=== PATIENT | female | born 1995 | race Caucasian/White ===

== ENCOUNTER 2017-03-16 20:48 | Emergency (ER) | payer OTHER ==
[2017-03-16 21:39] LABS: Urine Bilirubin Negative (Negative); Urine Glucose Negative (Negative); Urine Nitrite Negative (Negative)
[2017-03-16] MEDS ORDERED: NS 0.9% 1000 ML* 1,000 ML IV ONE (21:39)
[2017-03-16 21:57] LABS: Benzodiazepine Urine Screen None Detected (None Detect)
[2017-03-16 22:23] LABS: Hematocrit 41 % (35-47); Hemoglobin 13.7 g/dl (12.0-16.0); Mean Corpuscular HGB Conc 34 g/dl (31-36); Mean Corpuscular Hemoglobin 31 pg (27-31); Mean Corpuscular Volume 92 fL (80-97); Mean Platelet Volume 9 um3 (7.4-10.4); Red Blood Count 4.43 10^6/ul (4.0-5.4); Red Cell Distribution Width 13 % (10.5-15); White Blood Count 7.1 10^3/ul (3.5-10.8)
[2017-03-16 22:41] LABS: ALT 10 U/L (7-52); AST 13 U/L (13-39); Albumin 4.3 g/dL (3.2-5.2); Alkaline Phosphatase 49 U/L (34-104); Anion Gap 7 mmol/L (2-11); BUN/Creatinine Ratio 11.6 (8-20); Blood Urea Nitrogen 11 mg/dL (6-24); CO2 Carbon Dioxide 25 mmol/L (22-32); Calcium 9.4 mg/dL (8.6-10.3); Chloride 104 mmol/L (101-111); EGFR African American 96.5 (>60); Globulin 2.9 g/dL (2-4); Glucose 97 mg/dL (70-100); Potassium 3.2 mmol/L (3.5-5.0); Sodium 136 mmol/L (133-145); Total Protein 7.2 g/dL (6.4-8.9)
[2017-03-16 22:51] LABS: Acetaminophen < 15 mcg/mL; Alcohol < 10 mg/dL (<10); Salicylate < 2.50 mg/dL (<30)
[2017-03-16 22:59] LABS: TSH (Thyroid Stimulating Horm) 1.03 mcIU/mL (0.34-5.60)
[2017-03-17 00:33] LABS: Urine Bilirubin Negative (Negative); Urine Glucose Negative (Negative); Urine Nitrite Negative (Negative)
[2017-03-17 03:36] VITALS: BP 123/76
[2017-03-17 03:36] LABS: Benzodiazepine Urine Screen None Detected (None Detect)
--- NOTE | 2017-03-17 04:56 | ED ---
Kendra Wyatt Alok, scribed for Paul Aceves MD on 03/16/17 at 2153 . Psychiatric Complaint - HPI Summary HPI Summary: 21F presents to the ED after reportedly injecting five 20 mg Prozac tablets. Pt states that these tablets were prescribed to her for anxiety. Pt notes CP currently. Pt states she hasn't been sleeping well. Pt denies SOB or abd pain. Pt denies change in appetite. Pt denies any self-inflicted cuts or wounds. PMHx includes anxiety. Pt denies tobacco or ETOH. - History Of Current Complaint Chief Complaint: EDMentalHealth Time Seen by Provider: 03/16/17 21:37 Hx Obtained From: Patient Onset/Duration: Still Present Timing: Constant Severity Initially: Moderate Severity Currently: Moderate Character: Depressed, Anxious Aggravating Factor(s): Nothing Alleviating Factor(s): Nothing Associated Signs And Symptoms: Positive: Sleep Disturbance. Negative: Appetite Change Ingestion History: Type/Name Of Drug - Prozac, Amount Ingested - 5-6 20 mg tablets, Approximate Time Of Ingestion - Allergies/Home Medications Allergies/Adverse Reactions: Allergies Allergy/AdvReac Type Severity Reaction Status Date / Time Amoxicillin Allergy Intermediate Hives Verified 02/06/16 19:17 PMH/Surg Hx/FS Hx/Imm Hx Psychiatric History: Reports: Hx Anxiety - Immunization History Date of Tetanus Vaccine: Up to date Date of Influenza Vaccine: None Infectious Disease History: No Infectious Disease History: Denies: Traveled Outside the US in Last 30 Days - Family History Known Family History: Positive: Other - mother with MS - Social History Occupation: Student Lives: With Family Alcohol Use: None Substance Use Type: Reports: None Smoking Status (MU): Never Smoked Tobacco Review of Systems Positive: Chest Pain Negative: Shortness Of Breath Negative: Abdominal Pain All Other Systems Reviewed And Are Negative: Yes Physical Exam - Summary Physical Exam Summary: The patient is well-nourished in no acute distress and in no acute pain. The skin is warm and dry and skin color reflects adequate perfusion. No arm lacerations. HEENT: The head is normocephalic and atraumatic. The pupils are equal and reactive. The conjunctivae are clear and without drainage. Nares are patent and without drainage. Mouth reveals moist mucous membranes and the throat is without erythema and exudate. Neck is supple with full range of motion and non-tender. There are no carotid bruits. There is no neck vein distension. Respiratory: Chest is non-tender. Lungs are clear to auscultation and breath sounds are symmetrical and equal. Cardiovascular: Heart is regular rate and rhythm. There is no murmur or rub auscultated. There is no peripheral edema and pulses are symmetrical and equal. Abdomen: The abdomen is soft and non-tender. There are normal bowel sounds heard in all four quadrants and there is no organomegaly palpated. Musculoskeletal: There is no back pain noted. Extremities are non-tender with full range of motion. There is good capillary refill. There is no peripheral edema or calf tenderness elicited. Neurological: Patient is alert and oriented to person, place and time. The patient has symmetrical motor strength in all four extremities. Cranial nerves are grossly intact. Deep tendon reflexes are symmetrical and equal in all four extremities. Psychiatric: The patient is flat/affect and appears depressed. Triage Information Reviewed: Yes Vital Signs On Initial Exam: Initial Vitals Temp Pulse Resp BP Pulse Ox 99.9 F 84 18 140/95 100 03/16/17 21:02 03/16/17 21:02 03/16/17 21:02 03/16/17 21:02 03/16/17 21:02 Vital Signs Reviewed: Yes Diagnostics - Vital Signs Vital Signs Temp Pulse Resp BP Pulse Ox 03/16/17 21:16 99.9 F 84 18 140/95 100 03/16/17 21:02 99.9 F 84 18 140/95 100 - Laboratory Lab Results: Lab Results 03/16/17 03/16/17 03/16/17 Range/Units 21:27 21:27 22:09 WBC 7.1 (3.5-10.8) 10^3/ul RBC 4.43 (4.0-5.4) 10^6/ul Hgb 13.7 (12.0-16.0) g/dl Hct 41 (35-47) % MCV 92 (80-97) fL MCH 31 (27-31) pg MCHC 34 (31-36) g/dl RDW 13 (10.5-15) % Plt Count 206 (150-450) 10^3/ul MPV 9 (7.4-10.4) um3 Neut % (Auto) 47.7 (38-83) % Lymph % (Auto) 43.6 (25-47) % [place] % (Auto) 7.3 (1-9) % Eos % (Auto) 0.7 (0-6) % Baso % (Auto) 0.7 (0-2) % Absolute Neuts (auto) 3.4 (1.5-7.7) 10^3/ul Absolute Lymphs (auto) 3.1 (1.0-4.8) 10^3/ul Absolute Monos (auto) 0.5 (0-0.8) 10^3/ul Absolute Eos (auto) 0.1 (0-0.6) 10^3/ul Absolute Basos (auto) 0 (0-0.2) 10^3/ul Absolute Nucleated RBC 0.01 10^3/ul Nucleated RBC % 0.1 Sodium (133-145) mmol/L Potassium (3.5-5.0) mmol/L Chloride (101-111) mmol/L Carbon Dioxide (22-32) mmol/L Anion Gap (2-11) mmol/L BUN (6-24) mg/dL Creatinine (0.51-0.95) mg/dL Est GFR ( Amer) (>60) Est GFR (Non-Af Amer) (>60) BUN/Creatinine Ratio (8-20) Glucose (70-100) mg/dL Calcium (8.6-10.3) mg/dL Total Bilirubin (0.2-1.0) mg/dL AST (13-39) U/L ALT (7-52) U/L Alkaline Phosphatase (34-104) U/L Total Protein (6.4-8.9) g/dL Albumin (3.2-5.2) g/dL Globulin (2-4) g/dL Albumin/Globulin Ratio (1-3) TSH (0.34-5.60) mcIU/mL Beta HCG, Quant mIU/mL Urine Color Colorless Urine Appearance Clear Urine pH 6.0 (5-9) Ur Specific [place] 1.002 L (1.010-1.030) Urine Protein Negative (Negative) Urine Ketones Negative (Negative) Urine Blood Negative (Negative) Urine Nitrate Negative (Negative) Urine Bilirubin Negative (Negative) Urine Urobilinogen Negative (Negative) Ur Leukocyte Esterase Negative (Negative) Urine Glucose Negative (Negative) Salicylates (<30) mg/dL Urine Opiates Screen None detected (None Detect) Acetaminophen mcg/mL Ur Barbiturates Screen None detected (None Detect) Ur Phencyclidine Scrn None detected (None Detect) Ur Amphetamines Screen None detected (None Detect) U Benzodiazepines Scrn None detected (None Detect) Urine Cocaine Screen None detected (None Detect) U Cannabinoids Screen None detected (None Detect) Serum Alcohol (<10) mg/dL 03/16/17 03/17/17 03/17/17 Range/Units 22:09 00:12 00:14 WBC (3.5-10.8) 10^3/ul RBC (4.0-5.4) 10^6/ul Hgb (12.0-16.0) g/dl Hct (35-47) % MCV (80-97) fL MCH (27-31) pg MCHC (31-36) g/dl RDW (10.5-15) % Plt Count (150-450) 10^3/ul MPV (7.4-10.4) um3 Neut % (Auto) (38-83) % Lymph % (Auto) (25-47) % Cannon % (Auto) (1-9) % Eos % (Auto) (0-6) % Baso % (Auto) (0-2) % Absolute Neuts (auto) (1.5-7.7) 10^3/ul Absolute Lymphs (auto) (1.0-4.8) 10^3/ul Absolute Monos (auto) (0-0.8) 10^3/ul Absolute Eos (auto) (0-0.6) 10^3/ul Absolute Basos (auto) (0-0.2) 10^3/ul Absolute Nucleated RBC 10^3/ul Nucleated RBC % Sodium 136 (133-145) mmol/L Potassium 3.2 L (3.5-5.0) mmol/L Chloride 104 (101-111) mmol/L Carbon Dioxide 25 (22-32) mmol/L Anion Gap 7 (2-11) mmol/L BUN 11 (6-24) mg/dL Creatinine 0.95 (0.51-0.95) mg/dL Est GFR ( Amer) 96.5 (>60) Est GFR (Non-Af Amer) 75.0 (>60) BUN/Creatinine Ratio 11.6 (8-20) Glucose 97 (70-100) mg/dL Calcium 9.4 (8.6-10.3) mg/dL Total Bilirubin 0.30 (0.2-1.0) mg/dL AST 13 (13-39) U/L ALT 10 (7-52) U/L Alkaline Phosphatase 49 (34-104) U/L Total Protein 7.2 (6.4-8.9) g/dL Albumin 4.3 (3.2-5.2) g/dL Globulin 2.9 (2-4) g/dL Albumin/Globulin Ratio 1.5 (1-3) TSH 1.03 (0.34-5.60) mcIU/mL Beta HCG, Quant < 0.60 mIU/mL Urine Color Straw Urine Appearance Clear Urine pH 7.0 (5-9) Ur Specific [place] 1.005 L (1.010-1.030) Urine Protein Negative (Negative) Urine Ketones Negative (Negative) Urine Blood Negative (Negative) Urine Nitrate Negative (Negative) Urine Bilirubin Negative (Negative) Urine Urobilinogen Negative (Negative) Ur Leukocyte Esterase Negative (Negative) Urine Glucose Negative (Negative) Salicylates < 2.50 (<30) mg/dL Urine Opiates Screen None detected (None Detect) Acetaminophen < 15 mcg/mL Ur Barbiturates Screen None detected (None Detect) Ur Phencyclidine Scrn None detected (None Detect) Ur Amphetamines Screen None detected (None Detect) U Benzodiazepines Scrn None detected (None Detect) Urine Cocaine Screen None detected (None Detect) U Cannabinoids Screen None detected (None Detect) Serum Alcohol < 10 (<10) mg/dL Result Diagrams: 03/16/17 22:09 03/16/17 22:09 Lab Statement: Any lab studies that have been ordered have been reviewed, and results considered in the medical decision making process. - EKG 215 Cardiac Rate: NL - 73 bpm EKG Rhythm: Sinus Rhythm Ectopy: PVCs EKG Interpretation: Normal [place]. No prolonged QT. Course/Dx - Course Course Of Treatment: 21 y/o female ingested 5-6 20 mg tablets of Prozac. Poison control contacted; recommending 6 hour monitoring. Patient medically clear for U evaluation @ 0250 - Differential Dx/Clinical Impression Differential Diagnosis/HQI/PQRI: Positive: Drug Overdose/Intentional Provider Diagnosis: Depression, non-toxic prozac ingestion Discharge - Discharge Plan Condition: Stable Disposition: HOME Referrals: Marnie Godinez MD [Primary Care Provider] - The documentation as recorded by the Kendra ureña Alok accurately reflects the service I personally performed and the decisions made by me, Paul Aceves MD.
== END 2017-03-17 03:37 | disposition home or self-care (01) ==
LOC: ED 20:48
DX: T43.221A Poisoning by selective serotonin reuptake inhibitors, accidental (unintentional), initial encounter (principal); F32.9 Major depressive disorder, single episode, unspecified; F41.9 Anxiety disorder, unspecified; Y92.9 Unspecified place or not applicable; Z88.0 Allergy status to penicillin
CPT/HCPCS: 36415; 80053; 80307; 80320; 80329; 81003; 84443; 84702; 85025; 86703; 93005; 96360; 99285; G0480

== ENCOUNTER 2017-03-27 19:57 | Inpatient (IN) | payer OTHER ==
[2017-03-27 21:03] LABS: Hematocrit 42 % (35-47); Hemoglobin 13.6 g/dl (12.0-16.0); Mean Corpuscular HGB Conc 33 g/dl (31-36); Mean Corpuscular Hemoglobin 30 pg (27-31); Mean Corpuscular Volume 92 fL (80-97); Mean Platelet Volume 9 um3 (7.4-10.4); Red Blood Count 4.58 10^6/ul (4.0-5.4); Red Cell Distribution Width 13 % (10.5-15)
[2017-03-27 21:15] LABS: ALT 11 U/L (7-52); AST 13 U/L (13-39); Albumin 4.5 g/dL (3.2-5.2); Alkaline Phosphatase 54 U/L (34-104); Anion Gap 5 mmol/L (2-11); Blood Urea Nitrogen 15 mg/dL (6-24); CO2 Carbon Dioxide 27 mmol/L (22-32); Calcium 9.3 mg/dL (8.6-10.3); Chloride 105 mmol/L (101-111); EGFR African American 105.4 (>60); EGFR Non-African American 81.9 (>60); Globulin 2.9 g/dL (2-4); Glucose 97 mg/dL (70-100); Potassium 3.6 mmol/L (3.5-5.0); Sodium 137 mmol/L (133-145); Total Protein 7.4 g/dL (6.4-8.9)
[2017-03-27 21:18] LABS: Urine Bilirubin Negative (Negative); Urine Glucose Negative (Negative); Urine Nitrite Negative (Negative)
[2017-03-27 21:32] LABS: Benzodiazepine Urine Screen None Detected (None Detect)
[2017-03-27 21:51] LABS: Acetaminophen < 15 mcg/mL; Alcohol < 10 mg/dL (<10); Salicylate < 2.50 mg/dL (<30)
[2017-03-27 22:01] LABS: TSH (Thyroid Stimulating Horm) 0.43 mcIU/mL (0.34-5.60)
--- NOTE | 2017-03-28 00:03 | ED ---
I, Oh,Rakesh, scribed for Elma Sutherland MD on 03/27/17 at 2055 . Psychiatric Complaint - HPI Summary HPI Summary: Poor eye contact and guarded during the initial evaluation. Most HPI is obtained from bestfriend's mother who is present at bedside. This 21 y/o female presents to ED alongside best friend's mother for SI since today. "I can't handle myself". Positive plan, but pt does not specify the details. Pt is brought in by concerned bestfriend's mother after pt sent a suicide note via text to his boyfriend, which contains phrases such as "Goodbye for ever", "I am going to go away forever", "I am okay with dying right now", and "The future that I was looking forward to won't be happening". Friend's mother did not feel safe leaving pt alone, called suicide crisis line, and decided to bring patient in. Pt does confirm the suicide note at time of initial evaluation. And like it or not I need you in my life". Positive recent stressor due to family conflict with her mother and potential breakup with his boyfriend. Negative drug or EtOH. Pt is a student at school in [place] but is currently on leave while working in a [employer]. Pt was previously evaluated 10 days ago after taking pills and was discharged home after clearance. LMP was 2 weeks ago, but pt is currently on Nexplanon and has irregular vaginal bleeding until yesterday. No prior . PMHx includes anxiety and asthma. Pt reports possible sick contact from her friend. - History Of Current Complaint Chief Complaint: EDMentalHealth Time Seen by Provider: 03/27/17 20:23 Hx Obtained From: Patient, Family/Real Estate Legal Secretary - Jennifer, pt's best friend's mother Hx Last Menstrual Period: "just finishing", irregular, on Nexplanon ?: No Onset/Duration: Gradual Onset, Lasting Hours, Still Present Timing: Constant Severity Initially: Severe Severity Currently: Severe Character: Depressed Aggravating Factor(s): Recent Stress, Other - break up with boyfriend Alleviating Factor(s): Nothing Related History: Positive For: Prior Psychiatric Issues - recent overdose with pills Has Suicidal: Reports: Thoughts, With A Plan - Risk Factor(s) Completed Suicide Risk Factors: Past Suicide Attempt - Allergies/Home Medications Allergies/Adverse Reactions: Allergies Allergy/AdvReac Type Severity Reaction Status Date / Time Amoxicillin Allergy Intermediate Hives Verified 02/06/16 19:17 PMH/Surg Hx/FS Hx/Imm Hx Previously Healthy: No Respiratory History: Reports: Hx Asthma Psychiatric History: Reports: Hx Anxiety, Hx Depression Denies: Hx Eating Disorder - Surgical History Surgery Procedure, Year, and Place: no surg hx - Immunization History Date of Tetanus Vaccine: Up to date Date of Influenza Vaccine: None Infectious Disease History: No Infectious Disease History: Denies: Traveled Outside the US in Last 30 Days - Family History Known Family History: Positive: Other - mother with MS. Positive bipolar and alcoholism per pt - Social History Occupation: Employed Full-time Lives: With Family Alcohol Use: None Hx Substance Use: No Substance Use Type: Reports: None Hx Tobacco Use: No Smoking Status (MU): Never Smoked Tobacco Review of Systems Negative: Fever Cardiovascular: Negative Respiratory: Negative Gastrointestinal: Negative Neurological: Negative Positive: Depressed All Other Systems Reviewed And Are Negative: Yes Physical Exam Triage Information Reviewed: Yes Vital Signs On Initial Exam: Initial Vitals Temp Pulse Resp BP Pulse Ox 100.0 F 88 16 134/88 98 03/27/17 20:01 03/27/17 20:01 03/27/17 20:01 03/27/17 20:01 03/27/17 20:01 Vital Signs Reviewed: Yes Appearance: Positive: Well-Appearing, No Pain Distress, Well-Nourished. Negative: Signs of Trauma Skin: Positive: Warm, Skin Color Reflects Adequate Perfusion, Dry Head/Face: Positive: Normal Head/Face Inspection Eyes: Positive: EOMI, LUIS, Conjunctiva Clear ENT: Positive: Normal ENT inspection Neck: Positive: Supple, Nontender Respiratory/Lung Sounds: Positive: Clear to Auscultation, Breath Sounds Present Cardiovascular: Positive: RRR, Pulses are Symmetrical in both Upper and Lower Extremities. Negative: Leg Edema Left, Leg Edema Right Abdomen Description: Positive: Nontender, Soft. Negative: Distended, Guarding, Peritoneal Signs Musculoskeletal: Positive: Strength/ROM Intact. Negative: Blayne Sign Left, Blayne Sign Right, Edema Left, Edema Right Neurological: Positive: Sensory/Motor Intact, Alert, Oriented to Person Place, Time, Facial Symmetry, Speech Normal Psychiatric: Positive: Depressed - Guarded. Poor eye contact AVPU Assessment: Alert - [place] Coma Scale Coma Scale Total: 15 Diagnostics - Vital Signs Vital Signs Temp Pulse Resp BP Pulse Ox 03/27/17 20:01 100.0 F 88 16 134/88 98 - Laboratory Lab Results: Lab Results 03/27/17 03/27/17 03/27/17 Range/Units 21:09 21:09 21:54 WBC 8.0 (3.5-10.8) 10^3/ul RBC 4.58 (4.0-5.4) 10^6/ul Hgb 13.6 (12.0-16.0) g/dl Hct 42 (35-47) % MCV 92 (80-97) fL MCH 30 (27-31) pg MCHC 33 (31-36) g/dl RDW 13 (10.5-15) % Plt Count 200 (150-450) 10^3/ul MPV 9 (7.4-10.4) um3 Neut % (Auto) 64.9 (38-83) % Lymph % (Auto) 27.0 (25-47) % [place] % (Auto) 6.8 (1-9) % Eos % (Auto) 0.5 (0-6) % Baso % (Auto) 0.8 (0-2) % Absolute Neuts (auto) 5.2 (1.5-7.7) 10^3/ul Absolute Lymphs (auto) 2.2 (1.0-4.8) 10^3/ul Absolute Monos (auto) 0.5 (0-0.8) 10^3/ul Absolute Eos (auto) 0 (0-0.6) 10^3/ul Absolute Basos (auto) 0.1 (0-0.2) 10^3/ul Absolute Nucleated RBC 0 10^3/ul Nucleated RBC % 0.1 Sodium (133-145) mmol/L Potassium (3.5-5.0) mmol/L Chloride (101-111) mmol/L Carbon Dioxide (22-32) mmol/L Anion Gap (2-11) mmol/L BUN (6-24) mg/dL Creatinine (0.51-0.95) mg/dL Est GFR ( Amer) (>60) Est GFR (Non-Af Amer) (>60) BUN/Creatinine Ratio (8-20) Glucose (70-100) mg/dL Lactic Acid (0.5-2.0) mmol/L Calcium (8.6-10.3) mg/dL Total Bilirubin (0.2-1.0) mg/dL AST (13-39) U/L ALT (7-52) U/L Alkaline Phosphatase (34-104) U/L Total Protein (6.4-8.9) g/dL Albumin (3.2-5.2) g/dL Globulin (2-4) g/dL Albumin/Globulin Ratio (1-3) TSH Beta HCG, Quant mIU/mL Urine Color Yellow Urine Appearance Clear Urine pH 6.0 (5-9) Ur Specific [place] 1.015 (1.010-1.030) Urine Protein Negative (Negative) Urine Ketones Negative (Negative) Urine Blood Negative (Negative) Urine Nitrate Negative (Negative) Urine Bilirubin Negative (Negative) Urine Urobilinogen Negative (Negative) Ur Leukocyte Esterase Negative (Negative) Urine Glucose Negative (Negative) Salicylates (<30) mg/dL Urine Opiates Screen None detected (None Detect) Acetaminophen mcg/mL Ur Barbiturates Screen None detected (None Detect) Ur Phencyclidine Scrn None detected (None Detect) Ur Amphetamines Screen None detected (None Detect) U Benzodiazepines Scrn None detected (None Detect) Urine Cocaine Screen None detected (None Detect) U Cannabinoids Screen None detected (None Detect) Serum Alcohol (<10) mg/dL 03/27/17 03/27/17 Range/Units 21:54 21:54 WBC (3.5-10.8) 10^3/ul RBC (4.0-5.4) 10^6/ul Hgb (12.0-16.0) g/dl Hct (35-47) % MCV (80-97) fL MCH (27-31) pg MCHC (31-36) g/dl RDW (10.5-15) % Plt Count (150-450) 10^3/ul MPV (7.4-10.4) um3 Neut % (Auto) (38-83) % Lymph % (Auto) (25-47) % [place] % (Auto) (1-9) % Eos % (Auto) (0-6) % Baso % (Auto) (0-2) % Absolute Neuts (auto) (1.5-7.7) 10^3/ul Absolute Lymphs (auto) (1.0-4.8) 10^3/ul Absolute Monos (auto) (0-0.8) 10^3/ul Absolute Eos (auto) (0-0.6) 10^3/ul Absolute Basos (auto) (0-0.2) 10^3/ul Absolute Nucleated RBC 10^3/ul Nucleated RBC % Sodium 137 (133-145) mmol/L Potassium 3.6 (3.5-5.0) mmol/L Chloride 105 (101-111) mmol/L Carbon Dioxide 27 (22-32) mmol/L Anion Gap 5 (2-11) mmol/L BUN 15 (6-24) mg/dL Creatinine 0.88 (0.51-0.95) mg/dL Est GFR ( Amer) 105.4 (>60) Est GFR (Non-Af Amer) 81.9 (>60) BUN/Creatinine Ratio 17.0 (8-20) Glucose 97 (70-100) mg/dL Lactic Acid 0.9 (0.5-2.0) mmol/L Calcium 9.3 (8.6-10.3) mg/dL Total Bilirubin 0.30 (0.2-1.0) mg/dL AST 13 (13-39) U/L ALT 11 (7-52) U/L Alkaline Phosphatase 54 (34-104) U/L Total Protein 7.4 (6.4-8.9) g/dL Albumin 4.5 (3.2-5.2) g/dL Globulin 2.9 (2-4) g/dL Albumin/Globulin Ratio 1.6 (1-3) TSH Pending Beta HCG, Quant < 0.60 mIU/mL Urine Color Urine Appearance Urine pH (5-9) Ur Specific [place] (1.010-1.030) Urine Protein (Negative) Urine Ketones (Negative) Urine Blood (Negative) Urine Nitrate (Negative) Urine Bilirubin (Negative) Urine Urobilinogen (Negative) Ur Leukocyte Esterase (Negative) Urine Glucose (Negative) Salicylates < 2.50 (<30) mg/dL Urine Opiates Screen (None Detect) Acetaminophen < 15 mcg/mL Ur Barbiturates Screen (None Detect) Ur Phencyclidine Scrn (None Detect) Ur Amphetamines Screen (None Detect) U Benzodiazepines Scrn (None Detect) Urine Cocaine Screen (None Detect) U Cannabinoids Screen (None Detect) Serum Alcohol < 10 (<10) mg/dL Result Diagrams: 03/27/17 21:54 03/27/17 21:54 Lab Statement: Any lab studies that have been ordered have been reviewed, and results considered in the medical decision making process. Re-Evaluation - Re-Evaluation First Eval Re-Evaluation Time: 21:03 Comment: Pt requests to go to bathroom. Second Eval Re-Evaluation Time: 21:40 Comment: Best friend present at bedside. Course/Dx - Course Assessment/Plan: This 21 y/o female presents to ED after texting suicide note via text message to her boyfriend. Concerned friend's mother decided to bring pt in to ED when text was forwarded in her way. Positive SI with unspecified plan. Pt makes poor eye contact and appears guarded at time of initial evaluation. Negative EtOH or substance abuse today. Pt is medically cleared as of 2146 PM and is pending MHE. 2356: Psychiatrist states admit. Pt will need BP recheck within one month. - Differential Dx/Clinical Impression Differential Diagnosis/HQI/PQRI: Positive: Bipolar Disorder, Depression, Suicidal Ideation Provider Diagnosis: Suicidal ideation, Prehypertension - Physician Notifications Instructed by Provider To: Admit As Inpatient Patient Is Medically Stable For: Psych Evaluation - cleared as of 2147 PM Discharge - Discharge Plan Condition: Stable Disposition: [facility]IATRIC FACILITY-[facility] [place] The documentation as recorded by the Sarabjit ureña Soohyun accurately reflects the service I personally performed and the decisions made by , Elma Sutherland MD.
[2017-03-28] MEDS ORDERED: Acetaminophen TAB* 325 MG PO PRN (01:58)
[2017-03-28] MEDS ORDERED: Al Hydrox/Mg Hydrox/Simet LIQ* 30 ML UDC PO PRN (01:58)
[2017-03-28] MEDS ORDERED: predniSONE TAB* 20 MG PO PRN (01:59)
[2017-03-28] MEDS ORDERED: Famotidine TAB* 20 MG PO PRN (02:00)
[2017-03-28] MEDS: Vitamin THERAPEUTIC TAB PO SCH (09:19)
[2017-03-28] MEDS ORDERED: hydrOXYzine HCL TAB* 25 MG PO PRN (13:31)
[2017-03-28] MEDS: Venlafaxine EXT RELEASE CAP* 75 MG PO SCH (15:20)
--- NOTE | 2017-03-28 22:58 | HP ---
HISTORY AND PHYSICAL: DATE OF ADMISSION: 03/28/17 ATTENDING PSYCHIATRIST: Vishnu Naqvi MD. * (DICTATED BY GLADYS IVERSON NP) JUSTIFICATION FOR ADMISSION: The patient was admitted after being brought by her friend's mother, Jennifer, to the emergency room. She had made a suicidal note via text to her ex-boyfriend and he shared this with Jennifer. CHIEF COMPLAINT TODAY: "I am surviving." HISTORY OF PRESENT ILLNESS: Joyce is a 21-year-old female, single, employed, currently on medical leave from college and lives with her mother, Trini. Joyce took the springester off from [facility] in [place] due to increased depression. She has been planning on reentering school this fall, which would be approximately 2 weeks from now. However, her boyfriend of 2 years broke up with her recently and she texted him a message that said "say good bye to your family and I am telling Jessica to say good bye to mine. I have caused too much pain. I am okay with dying right now." Joyce endorses increased depressed mood and depressive symptoms for approximately 1 year. She endorses anhedonia, low energy, thoughts of suicide. She states that her sleep is more interrupted and her appetite has lessened. She endorses generalized anxiety is more significant. She states that while in school she had panic attacks once or twice weekly. She states her last panic attack was yesterday after breakup with her boyfriend. She is vague with other symptoms. She reports that she wants to sort things through in her head. She declines to elaborate further on this. She has a new patient appointment with therapist, Marge Hernández this week. Joyce states that she would prefer to go into detail with a therapist with whom she is going to have a longer time relationship. Joyce was also seen in the emergency room on 03/16/17, just a couple of weeks ago after an overdose attempt on Prozac. While in the emergency room, she declined offer of voluntary admission and there was a safe discharge plan to discharge home. She denies that she will be at risk for this again. When she was in the emergency room after an overdose attempt, according to notes this was after she had broken up with the boyfriend, so apparently, they have been on and off recently. Today, Joyce is denying suicidal ideation. She requests to be discharged and states that she overreacted yesterday. Joyce denies obsessive or compulsive rituals. She denies delusions, depersonalization, AH or VH. She denies HI or . She denies periods of ezra or hypomania. She denies eating disorder behaviors. She denies periods of ezra or hypomania. She denies eating disorder behaviors. Her mother is present for a portion of the psychiatric interview. Her mother, Trini, reports that Joyce has "not been herself." Mother is concerned about the relationship with the boyfriend in that Joyce has become dependent on him and that she is not prioritizing her own personal goals and education. PAST PSYCHIATRIC HISTORY: Joyce states that she has been in counseling while in college at [employer]. She states that she has met a few therapists, but has not really connected with them. As stated above, she has made an appointment with Marge Hernández for intake and that is happening this , 03/31/17. Joyce was seen in the emergency room on 03/16/17 after an overdose attempt on Prozac. Prozac had been prescribed by her PCP, Dr. Godinez and she was being weaned off this medication because of suicidal ideation. She was also trialed on Lexapro in the past and states this was ineffective and made her tired. MEDICAL HISTORY: Asthma, bronchitis. Height 5 feet 4 inches, weight 125 pounds. Last menstrual period two weeks ago. Denies surgical history. PRIMARY CARE PROVIDER: Marnie Godinez MD. MEDICATIONS: 1. Nexplanon was implanted in March 2016. 2. Albuterol inhaler p.r.n. SOB. 3. B complex vitamin. 4. Multivitamin. She is not currently on any psychotropic medications. ALLERGIES: AMOXICILLIN - Hives. FAMILY PSYCH HISTORY: Father- alcohol use disorder. There is depression and alcoholism on her father's side. There is substance use on both mother's and father's side. Her paternal aunt suicided. She had a history of schizophrenia. SOCIAL HISTORY: Joyce is the only child of Neri, who approximately a year ago. Joyce grew up in [place] and graduated from [employer] as a valedictorian. She received scholarship to [employer] in [place]. She has been on FMLA leave since August for depression. 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 Her boyfriend of two years, Raymond, attends [employer] and this summer they have been dating on and off. Joyce's grandmother and much of her paternal family lives in [place]. REVIEW OF SYSTEMS: Constitutional: Negative. Cardiovascular: Negative. Respiratory: Negative. Gastrointestinal: Negative. Neurological: Negative. Positive for depression, anxiety. All other symptoms reviewed and are negative. PHYSICAL EXAM: APPEARANCE: She is well appearing, no pain or distress, well nourished. VITAL SIGNS: Most recent vital signs: Temperature 98.0, pulse 76, respiratory rate 18, O2 sat of 100%, blood pressure 104/65. HEAD AND FACE: Positive, normal head and face inspection. Eyes: Positive EOMI , LUIS. ENT: Positive, normal ENT inspection. NECK: Positive, supple, nontender. RESPIRATORY: Lung sounds positive, clear to auscultation. Breath sounds present. CARDIOVASCULAR: Positive RRR. Pulses are symmetrical in both upper and lower extremities. ABDOMEN: Positive, nontender, soft. MUSCULOSKELETAL: Positive strength. ROM intact. NEUROLOGICAL: Alert and oriented x3. Facial symmetry. SKIN: Warm, dry, adequate perfusion. MENTAL STATUS EXAM: Joyce is disheveled. Hair messy, wearing her own clothes and wrapped in a blanket. She sits on a couch facing away from her mother. She is cooperative, somewhat guarded and vague with interview. She is alert and oriented x3. Her concentration is fair. Recall is 3/3. Her mood is dysphoric. Affect is flat. Speech is soft. She is tearful at times. Thought process is circumstantial. Some poverty noted. Thought content: She denies SI or HI. Insight is poor in the context of recent overdose attempt and desire to be discharged after vidal suicidal ideation yesterday. Judgment is poor. Fund of knowledge is adequate. LABORATORY DATA FROM THE EMERGENCY ROOM: CBC was normal. CMP was within normal limits. TSH is normal. Serum is negative. Urinalysis was within normal limits. Toxicology is negative for salicylates, acetaminophen or alcohol. Urine drug screen was negative. DIAGNOSES: Pevely I: Major depressive disorder with anxious distress; rule out generalized anxiety disorder. Pevely II: Deferred. Pevely III: Asthma and HRT. Pevely IV: Severe, stressors related to relationship with boyfriend and parent separation. Pevely V: 40. ASSESSMENT: Joyce is a 21-year-old female, single, currently living with her mother and she is on leave from college due to depressive symptoms for the past year. She and her boyfriend have been on and off this past month, if not longer. Her parents have been for a year. According to her mother , Joyce puts great pressure on herself and is having difficulty with college demands. There is also concern about dependency on the boyfriend. It may be noteworthy that her depressive symptoms increased along the same time of nexplanon implantation. Current hospitalization is justified in the context of a recent overdose attempt and suicidal threat via text in the past 2 weeks. Medication education done and the patient is agreeable to trial of an SNRI along with p.r.n. use of hydroxyzine for anxiety and insomnia likely related to depression. PLAN: Admit the patient to Adult Behavioral Services unit under voluntary status. Code status is full. Place on q.15 minutes checks for safety. Encourage supportive milieu and individual and group therapies. Continue to monitor for safety, mood and thought content. Discharge planning will include family and social support at the discretion of the patient, will involve outpatient providers as well. GLADYS IVERSON NP [id number]/CPS #: [id number] TRINY
[2017-03-29] MEDS: Vitamin THERAPEUTIC TAB PO SCH (10:00)
[2017-03-29] MEDS: Venlafaxine EXT RELEASE CAP* 75 MG PO SCH (10:00)
--- NOTE | 2017-03-29 10:57 | PN ---
Subjective - Subjective Subjective: Patient has been seclusive to self but participating in programming. She continues to deny SI or risk for self harm. She denies side effects from new medications. She phoned her boyfriend last evening "just to hear his voice." She reports that her friend's mother, Jennifer, is not comfortable with her staying with her. Maria Elena plans to return to her mother's home upon discharge. She states she is contemplating returning to college at the beginning of the semester and seeing her prior therapist. She wants to meet with local therapist Marge Hernández in the meantime. Her friend's mother, Sandy, is a PA and has agreed to provide medication for her. Objective - Appearance Appearance: Well Developed/Nourished Dysmorphic Features: Yes Hygiene: Normal Grooming: Disheveled - Behavior Psychomotor Activities: Abnormal-Decreased - psychomotor retardation Exhibits Abnormal Movement: Yes - Attitude and Relatedness Attitude and Relatedness: Superficially Cooperative Eye Contact: Good - Speech Quality: Unpressured Latencies: Normal Quantity: Appropriate - soft, barely audible at times - Mood Patient's Decription of Mood: "Okay" - Affect Observed Affect: Depressed Affect Consistent with: Dysphoria - Thought Process Patient's Thought Process: Coherent, Goal Directed, Circumstantial Thought Content: No Passive Wish, No Suicidal Planning, No Homicidal Ideation, No Paranoid Ideation - Sensorium Experiencing Hallucinations: No, Sensorium is Clear Type of Hallucinations: Visual: No, Auditory: No, Command: No - Level of Consciousness Level of Consciousness: Alert Orientation: Yes Intact, Yes Orientated to Time, Yes Orientated to Place, Yes Orientated to Person - Impulse Control Impulse Control: Tenuous - Insight and Judgement Insight and Judgement: Fair - Group Participation Particating in Group Activities: Yes - Medication Management Medication Management Adherence: Yes Assessment - Assessment Merits Inpatient Hospitalization: For Immediate Safety, For Stabilization, Pending Safe DC Plan Inpatient DSM-IV Dx: major depressive d/o, recurrent, moderate; r/o generalized anxiety d/o Clinical Impression: Patient is a 21yo female with relationship stressors and suicidal ideation in the context of a break up. She was seen in the ED two weeks ago after an overdose attempt on Prozac. She continues to minimize her symptoms and risk for lethality. Plan - Plan Treatment Plan: Name: MARIA ELENA D COLON Birthdate: 1995 [id number] Continue medications prescribed yesterday. Strongly encouraged supportive milieu and unit programming. Decrease observation to q30 min to allow for use of comfort room and staff pass. Continue to monitor for mood and thought content. Continued Medication Management: Start Medication Medications: Current Medications Acetaminophen (Tylenol Tab*) 650 mg PO Q4H PRN PRN Reason: PAIN or TEMP > 101 F Al Hydrox/Mg Hydrox/Simethicone (Maalox Plus*) 30 ml PO Q4H PRN PRN Reason: INDIGESTION Famotidine (Pepcid Tab*) 20 mg PO BID PRN PRN Reason: DISCRETION Hydroxyzine HCl (Atarax Tab*) 25 mg PO Q6H PRN PRN Reason: AGITATION/ANXIETY/INSOMNIA Multivitamins (Theragran Tab*) 1 tab PO DAILY [facility] Last Admin: 03/29/17 10:00 Dose: Not Given Prednisone (Deltasone Tab*) 40 mg PO DAILY PRN PRN Reason: DISCRETION Venlafaxine HCl (Effexor Xr Cap*) 75 mg PO DAILY [facility] Last Admin: 03/29/17 10:00 Dose: 75 mg - Discharge Plan Discharge Plan: Outpatient Follow Up Outpatient Program: Private Clinician(s)
[2017-03-30] MEDS: Venlafaxine EXT RELEASE CAP* 75 MG PO SCH (07:46)
[2017-03-30] MEDS: Vitamin THERAPEUTIC TAB PO SCH (07:47)
[2017-03-30 07:57] VITALS: BP 104/59
--- NOTE | 2017-03-30 11:52 | PN ---
[facility]: Group Therapy Note - Service Type Service Type: 17205 Group Psychotherapy - Cognitive Behavioral Group Therapy ( CBT):Patient was attentive and participatory in CBT programming this morning, and remained in good behavioral control. Patient expressed positive insights regarding relevant treatment interventions and goals.
--- NOTE | 2017-03-30 16:04 | CONS ---
PSYCHOLOGICAL REPORT: DATE OF CONSULT: 03/30/17 REASON FOR REFERRAL: Joyce was referred for personality testing secondary to concerns regarding intensity of depression and possible lethality. She was brought to the emergency department secondary to having texted her estranged boyfriend alluding to suicide. TESTS ADMINISTERED: Joyce completed the [place] Multiphasic Personality Inventory-2 (MMPI-2). She was given feedback in individual conversation regarding test results and clinical progress. BEHAVIORAL OBSERVATIONS: Joyce is a 23-year-old female who is single and currently employed at a lab at [employer]. She intends on returning to [facility] where she is a rising madeline in the following few weeks. She is majoring in biology. Mother is hopeful of getting entrance into graduate school to study biology further. She is unsure of her direction at this point time, but clearly describes her passion for her major. Joyce has been attentive and participatory in programming during her stay here. Her participation in group programming has been productive and she is earnest and spontaneous in speech both in group context as well as in individual conversation. She is forthcoming about her difficulties regarding both in historical depression, citing increasing academic stressors and the breakup of a 2-year relationship with her ex-boyfriend. She also states more enduring stress occurring secondary to her parents' recent separation and divorce. She describes being someone estranged from her father secondary to his continued drinking; however, her mother has been attentive and visiting her while here and she describes a warm relationship with her mother with whom she is staying for the summer. Currently, Joyce presents with a bright affect and is curious and interested in discussion of test results as well as clinical progress. She is very reassuring in terms of denial of continuing thoughts of suicide, describing have gained perspective and is feeling safe at this point in time. She has a appropriately requested discharge as she is eager to return to complete her summer employment and return to college. She demonstrates good perspective in regards to managing both academic and personal stressors, stating that "no person is worth all that." TEST RESULTS: Joyce provides a valid response on this administration of the MMPI- 2, having endorsed generally low levels of cynical and pessimistic thoughts and attitudes. She does elevate the depression and anxiety indices which match her presenting problems quite directly in a fairly minimal fashion ( T=70). She has a similar elevation on psychopathic deviate scale as well. This is quite common in college students in her age demographic, with discussion addressing how it is important to maintain a healthy sense of nonconformity and independence in thought. This discussion resonated well with Joyce who describes good ego strength. Joyce describes good insight regarding the importance of remaining compliant with prescribed Effexor, understanding the importance of titration, both while beginning the medications as well as ending it. She spontaneously expressed her interest in engaging and continuing on outpatient treatment, especially after returning to [facility] where she has an already established professional relationship with the psychologist. Lethality issues impress as having significantly desisted presently, as Joyce shows good insight regarding discussion addressing safety concerns as well as becoming more aware of symptoms of depression and how to effectively manage such difficulties. DIAGNOSTIC IMPRESSION: Major depressive disorder; rule out generalized anxiety. No concerns regarding characterological vulnerabilities consistent with [employer] II diagnoses. [id number]/CPS #: [id number] TRINY
--- NOTE | 2017-03-31 12:42 | DS ---
CC: Marnie Godinez MD DISCHARGE SUMMARY: DATE OF ADMISSION: 03/28/17 DATE OF DISCHARGE: 03/30/17 SUPERVISING PSYCHIATRIST: Dr. Vishnu Naqvi. DISCHARGE DIAGNOSES: Lotus I: Major depressive disorder, moderate, recurrent with anxious distress, rule out generalized anxiety disorder. Lotus II: Deferred. Lotus III: Asthma and HRT. Lotus IV: Moderate stressors related to recent breakup of relationship and being on medical leave from college courses. CONDITION AT TIME OF DISCHARGE: Improved. Joyce endorses improved mood and denies suicidal ideation. She reports gaining insight and tools from groups and programming while on the unit. She expresses gratitude for being on the unit and identifies that despite not wanting to stay more than a day, she is appreciative of the care she has received. She has expressed to the staff that she has had positive communication with her mother during visiting hours. This quality analyst/technical writer met with mother and Joyce during visiting hours today. They both agreed that Joyce was ready for discharge. We discussed removing access to medications and over- the-counter medications. There are no firearms in the home. Joyce is going to be monitored by mother and family members. She also has an appointment with a new therapist, . Joyce gave consent for the staff to communicate with both her primary care provider, Dr. Marnie Godinez, and her therapist, Marge Hernández. Joyce presented as euthymic. She had ADLs completed. She was interactive and social with select peers and staff. She expresses a desire to discontinue communication with boyfriend, Raymond. MENTAL STATUS EXAM: Joyce is a thin framed, Romanian female, appears stated age. She is showered and hair is done. She is wearing her own clothing. Her body posture has improved. Affect is bright. Eye contact is good. Her speech is soft and articulate. She reports her mood is "better." Her thought process is logical, coherent and goal directed. Thought content negative for SI or SIB urges. She denies delusions, obsessions or phobias. Her insight is good. Judgment is good. Fund of knowledge is excellent. Instructions were given to the patient by the nursing staff. MEDICATIONS were escripted to [facility] in [place]: 1. Venlafaxine XR 75 mg p.o. q.a.m. 2. Hydroxyzine 25 mg p.o. q. 6 hours p.r.n. anxiety. Her outpatient medications from primary care were continued. 1. Famotidine 20 mg p.o. b.i.d. p.r.n. stomach upset. 2. Prednisone 40 mg p.o. daily p.r.n. MD discretion. DIET: Regular. ACTIVITY: Ambulation as tolerated. Tobacco cessation is not applicable. There are no pending labs or diagnostic studies at the time of discharge. HOSPITAL COURSE: A. Reason for admission: The patient was brought to the emergency department by her friend's mother Jennifer. The patient had made a suicidal note via text to her boyfriend and he shared this with Jennifer. The patient had an overdose attempt on Prozac just 2 weeks prior. She was admitted for safety and stabilization and medication management. B. Psychiatric treatment rendered: Joyce was admitted to the behavioral services unit on voluntary status. Her code status was full. She was placed on 15-minute checks and encouraged to engage in supportive milieu, individual sessions and psychoeducational groups. Her primary care provider had recently weaned her off of Prozac due to increase in suicidal ideation. Joyce was agreeable to a trial of SNRI, venlafaxine to target depressed mood and persistent anxiety. This dose was started at 75 mg, she tolerated well. She declined offer of increase in dose. She will discuss next titration of 87.5 mg with her primary care provider upon discharge. Joyce was prescribed hydroxyzine 25 mg p.o. q. 6 hours p.r.n.; however, she did not utilize during the admission. Joyce was safe on all checks. She denied suicidality. She reported improved relationship with her mother. She reported gaining insight into her recent breakup with her boyfriend. She participated fully in the unit programming and reports plans to return to [employer] for the fall. Joyce reported readiness for discharge. She completed an MMPI and met with psychologist to go over these results. Please see consultation report from Dr. Abdulkadir Campbell. The patient retains slight risk for suicide due to recent attempt and ideation. See above for steps taken to alleviate stressors that lead to admission. The patient discharged to the care of her mother due to obligation to treat in least restrictive setting GLADYS IVERSON CATHETER FINISHER AND INSPECTOR [id number]/[facility] #: [id number] [facility]ITAL[facility]
== END 2017-03-30 17:37 | disposition home or self-care (01) | DRG 885 ==
LOC: ED 19:57 → BSU 03-28 01:04
PROVIDERS: ADMIT Psychiatry & Neurology Psychiatry; ATTEND Psychiatry & Neurology Psychiatry
DX: F33.1 Major depressive disorder, recurrent, moderate (principal); R45.851 Suicidal ideations; J45.909 Unspecified asthma, uncomplicated; Z81.1 Family history of alcohol abuse and dependence; Z81.8 Family history of other mental and behavioral disorders; Z81.3 Family history of other psychoactive substance abuse and dependence
CPT/HCPCS: 36415; 80053; 80307; 80320; 80329; 81003; 83605; 84443; 84702; 85025; 90853; 96102; 99222; 99231; 99238; A9270-GY; G0480

== ENCOUNTER 2017-12-04 20:52 | Emergency (ER) | payer OTHER ==
[2017-12-04] MEDS ORDERED: NS 0.9% 1000 ML*IV.FLUID IV ONE (21:18)
[2017-12-04] MEDS ORDERED: Clindamycin 900 MG IVPREMIX(* 900 MG/50 ML SDV IV ONE (21:19)
[2017-12-04] MEDS ORDERED: Acetaminophen TAB* 325 MG PO ONE (21:19)
[2017-12-04 22:18] LABS: ABS Basophils 0.1 10^3/ul (0-0.2); ABS Eosinophils 0.1 10^3/ul (0-0.6); ABS Lymphocytes 1.4 10^3/ul (1.0-4.8); ABS Monocytes 0.7 10^3/ul (0-0.8); ABS Neutrophils 17.8 10^3/ul (1.5-7.7); ABS Nucleated RBC 0 10^3/ul; Eosinophil % 0.4 % (0-6); Hematocrit 37 % (35-47); Hemoglobin 12.4 g/dl (12.0-16.0); Lymphocyte % 7.2 % (25-47); Mean Corpuscular HGB Conc 34 g/dl (31-36); Mean Corpuscular Hemoglobin 30 pg (27-31); Mean Corpuscular Volume 89 fL (80-97); Mean Platelet Volume 7.7 um3 (7.4-10.4); Nucleated Red Blood Cells % 0; Platelet Count 248 10^3/ul (150-450); Red Blood Count 4.11 10^6/ul (4.0-5.4); Red Cell Distribution Width 13 % (10.5-15); White Blood Count 20.1 10^3/ul (3.5-10.8)
--- NOTE | 2017-12-04 23:02 | ED ---
Jenae Wyatt Gabriel, scribosmany for Michela Hernández MD on 12/04/17 at 2127 . Skin Complaint - HPI Summary HPI Summary: This patient is a 22 year old F presenting to [facility] accompanied by her mother with a chief complaint of a right infected nipple piercing that began this morning. The piercing was done three weeks ago but it has been healing well until this morning. The patient rates the pain 5/10 in severity. Patient reports nipple tenderness, armpit tenderness, and fever. Patient denies discharge from the site. - History of Current Complaint Chief Complaint: EDGeneral Time Seen by Provider: 12/04/17 21:04 Stated Complaint: FEVER/POSSIBLE INFECTION ON RT BREAST Hx Obtained From: Patient Hx Last Menstrual Period: "just finishing", irregular, on Nexplanon Onset/Duration: Still Present Timing: Constant Onset Severity: Moderate Current Severity: Moderate Pain Intensity: 5 Pain Scale Used: 0-10 Numeric Skin Location: Other: - right nipple Character: Pain Associated Signs & Symptoms: Negative - discharge, Fever - Additional Pertinent History Primary Care Physician: SONG - Allergy/Home Medications Allergies/Adverse Reactions: Allergies Allergy/AdvReac Type Severity Reaction Status Date / Time amoxicillin Allergy Hives Verified 12/04/17 21:11 PMH/Surg Hx/FS Hx/Imm Hx Respiratory History: Reports: Hx Asthma Sensory History: Denies: Hx Contacts or Glasses, Hx Hearing Aid Opthamlomology History: Denies: Hx Contacts or Glasses Psychiatric History: Reports: Hx Anxiety, Hx Depression, Hx Community Mental Health Tx Denies: Hx Eating Disorder, Hx Inpatient Treatment, Hx of Violent Episodes Against Others - Surgical History Surgery Procedure, Year, and Place: no surg hx - Immunization History Date of Tetanus Vaccine: Up to date Date of Influenza Vaccine: None Infectious Disease History: No Infectious Disease History: Denies: Traveled Outside the [place] in Last 30 Days - Family History Known Family History: Positive: Other - mother with MS. Positive bipolar and alcoholism per pt - Social History Lives: With Family Alcohol Use: Occasionally Hx Substance Use: No Substance Use Type: Reports: None Hx Tobacco Use: No Smoking Status (MU): Never Smoked Tobacco Review of Systems Positive: Fever Positive: Other - nipple tenderness, armpit tenderness, Skin: Negative - discharge All Other Systems Reviewed And Are Negative: Yes Physical Exam - Summary Physical Exam Summary: VITAL SIGNS: Reviewed. GENERAL: Patient is a well-developed and nourished female who is lying comfortable in the stretcher. Patient is not in any acute respiratory distress. HEAD AND FACE: No signs of trauma. No ecchymosis, hematomas or skull depressions. No sinus tenderness. EYES: PERRLA, EOMI x 2, No injected conjunctiva, no nystagmus. EARS: Hearing grossly intact. Ear canals and tympanic membranes are within normal limits. MOUTH: Oropharynx within normal limits. NECK: Supple, trachea is midline, no adenopathy, no JVD, no carotid bruit, no c- spine tenderness, neck with full ROM. CHEST: Symmetric, no tenderness at palpation LUNGS: Clear to auscultation bilaterally. No wheezing or crackles. CVS: Regular rate and rhythm, S1 and S2 present, no murmurs or gallops appreciated. ABDOMEN: Soft, non-tender. No signs of distention. No rebound no guarding, and no masses palpated. Bowel sounds are normal. EXTREMITIES: FROM in all major joints, no edema, no cyanosis or clubbing. NEURO: Alert and oriented x 3. No acute neurological deficits. Speech is normal and follows commands. SKIN: the right breast is warm and tender. The right nipple is pierced; there is no discharge from the piercing. Right axial is TTP Triage Information Reviewed: Yes Vital Signs On Initial Exam: Initial Vitals Temp Pulse Resp BP Pulse Ox 100.2 F 96 18 115/67 100 04 20:59 12/04/17 20:59 12/04/17 20:59 12/04/17 20:59 12/04/17 20:59 Vital Signs Reviewed: Yes Diagnostics - Vital Signs Vital Signs Temp Pulse Resp BP Pulse Ox 12/04/17 20:59 100.2 F 96 18 115/67 100 - Laboratory Result Diagrams: 12/04/17 22:05 12/04/17 22:05 Lab Statement: Any lab studies that have been ordered have been reviewed, and results considered in the medical decision making process. Re-Evaluation - Re-Evaluation First Eval Re-Evaluation Time: 22:39 Change: Unchanged Comment: I discussed test results. Course/Dx - Course Assessment/Plan: This patient is a 22 year old F presenting to [facility] accompanied by her mother with a chief complaint of a right infected nipple piercing that began this morning. The piercing was done three weeks ago but it has been healing well until this morning. The patient rates the pain 5/10 in severity. Patient reports nipple tenderness, armpit tenderness, and fever. Patient denies discharge from the site. Pt does not look toxic. She agrees to the treatment using oral antibiotics and she has agreed to removing the piercing. Test results with no significant abnormalities except for a WBC of 20. In the ED course the patient was given tylenol, IV fluids, and clindamycin. Dx right mastitis. Patient will be discharged with prescription for clinda and follow up from PCP. The patient is agreeable with this plan. - Diagnoses Provider Diagnoses: Mastitis, right, acute Discharge - Sign-Out/Discharge Documenting (check all that apply): Discharge - Discharge Plan Condition: Stable Disposition: HOME Prescriptions: Clindamycin Cap(NF) [Clindamycin Cap 300 mg Cap(NF)] 300 mg PO Q6H #40 cap Ibuprofen TAB* [Motrin TAB* 600 MG] 600 mg PO Q6H PRN #30 tab PRN Reason: Fever/Pain Patient Education Materials: Mastitis (ED) Referrals: Marnie Godinez MD [Primary Care Provider] - 2 Days Additional Instructions: Apply warm compresses, keep the piercing out. Take Clindamycin as directly. Motrin as needed for fever and pain. RETURN TO THE ER FOR ANY NEW OR WORSENING SYMPTOMS, you may need IV antibiotics if symptoms get worse. The documentation as recorded by the Jenae ureña Gabriel accurately reflects the service I personally performed and the decisions made by , Michela Hernández MD.
[2017-12-05 00:02] VITALS: BP 105/49
== END 2017-12-05 00:01 | disposition home or self-care (01) ==
LOC: ED 20:52
DX: N61.0 Mastitis without abscess (principal)
CPT/HCPCS: 36415; 80053; 83605; 85025; 86140; 87040; 99282; A9270-GY

== ENCOUNTER 2018-05-14 17:31 | Emergency (ER) | payer OTHER ==
--- NOTE | 2018-05-14 20:51 | ED ---
Upper Extremity Pain - HPI Summary HPI Summary: Patient complains of pain to left wrist 2 months, getting worse when she does yoga. Denies any initial traumatic event, any other pain or symptoms. Medical history is none. - History of Current Complaint Chief Complaint: EDExtremityUpper Stated Complaint: LT ARM INJURY Time Seen by Provider: 05/14/18 19:11 Hx Obtained From: Patient, Family/In Flight Technician Hx Last Menstrual Period: "just finishing", irregular, on Nexplanon Mechanism Of Injury: Unknown Onset/Duration: Started Weeks Ago Timing: Intermittent Severity Initially: Mild Severity Currently: Moderate Pain Location: Wrist Character: Aching Aggravating Factor(s): Movement Alleviating Factor(s): Rest Associated Signs & Symptoms: Positive: Negative - Allergies/Home Medications Allergies/Adverse Reactions: Allergies Allergy/AdvReac Type Severity Reaction Status Date / Time amoxicillin Allergy Hives Verified 05/14/18 17:41 clindamycin Allergy Hives Verified 05/14/18 17:41 PMH/Surg Hx/FS Hx/Imm Hx Endocrine/Hematology History: Denies: Hx Anticoagulant Therapy Cardiovascular History: Denies: Hx Cardiac Arrest Respiratory History: Reports: Hx Asthma History: Denies: Hx Dialysis Sensory History: Denies: Hx Contacts or Glasses, Hx Hearing Aid Opthamlomology History: Denies: Hx Contacts or Glasses Neurological History: Denies: Hx CVA Psychiatric History: Reports: Hx Anxiety, Hx Depression, Hx Community Mental Health Tx Denies: Hx Eating Disorder, Hx Inpatient Treatment, Hx of Violent Episodes Against Others - Surgical History Surgery Procedure, Year, and Place: no surg hx - Immunization History Date of Tetanus Vaccine: Up to date Date of Influenza Vaccine: None Infectious Disease History: No Infectious Disease History: Reports: Traveled Outside the [place] in Last 30 Days - [place] - Family History Known Family History: Positive: Other - mother with MS. Positive bipolar and alcoholism per pt - Social History Alcohol Use: Occasionally Hx Substance Use: No Substance Use Type: Reports: None Hx Tobacco Use: No Smoking Status (MU): Never Smoked Tobacco Review of Systems Constitutional: Negative Eyes: Negative ENT: Negative Cardiovascular: Negative Respiratory: Negative Gastrointestinal: Negative Genitourinary: Negative Positive: Arthralgia Skin: Negative Neurological: Negative Psychological: Normal All Other Systems Reviewed And Are Negative: Yes Physical Exam - Summary Physical Exam Summary: No erythema, extra warmth, ecchymosis, swelling, deformity noted to right wrist. Pain with flexion and extension of right wrist. PMS intact distally Triage Information Reviewed: Yes Vital Signs On Initial Exam: Initial Vitals Temp Pulse Resp BP Pulse Ox 98.3 F 90 14 118/67 97 05/14/18 17:40 05/14/18 17:40 05/14/18 17:40 05/14/18 17:40 05/14/18 17:40 Vital Signs Reviewed: Yes Appearance: Positive: Well-Appearing Skin: Positive: Warm Head/Face: Positive: Normal Head/Face Inspection Eyes: Positive: Normal Neck: Positive: Supple Respiratory/Lung Sounds: Positive: Clear to Auscultation Cardiovascular: Positive: Normal Abdomen Description: Positive: Nontender Musculoskeletal: Positive: Normal Neurological: Positive: Normal Psychiatric: Positive: Normal AVPU Assessment: Alert - Priscila Coma Scale Best Eye Response: 4 - Spontaneous Best Motor Response: 6 - Obeys Commands Best Verbal Response: 5 - Oriented Coma Scale Total: 15 Diagnostics - Vital Signs Vital Signs Temp Pulse Resp BP Pulse Ox 05/14/18 17:40 98.3 F 90 14 118/67 97 - Laboratory Lab Statement: Any lab studies that have been ordered have been reviewed, and results considered in the medical decision making process. - Radiology wrist Xray Interpretation: No Acute Changes Radiology Interpretation Completed By: ED Physician Course/Dx - Course Course Of Treatment: Patient complains of pain to left wrist 2 months, getting worse when she does yoga. Denies any initial traumatic event, any other pain or symptoms. Medical history is none. Physical exam:No erythema, extra warmth , ecchymosis, swelling, deformity noted to right wrist. Pain with flexion and extension of right wrist. PMS intact distally. Splint applied. Ice, rest, ibuprofen. Follow up with orthopedics if sx do not improve. - Diagnoses Provider Diagnoses: Left wrist sprain Discharge - Sign-Out/Discharge Documenting (check all that apply): Patient Departure - Discharge Plan Condition: Stable Disposition: HOME Patient Education Materials: Wrist Sprain (ED) Referrals: Marnie Godinez MD [Primary Care Provider] - Mary Alice Cobian MD [Medical Doctor] - Additional Instructions: Ice, ibuprofen, rest for 2 weeks. If symptoms do not improve follow-up with orthopedics Dr. Cobian. Return to the ED for any new or worsening symptoms - Billing Disposition and Condition Condition: STABLE Disposition: Home
[2018-05-14 21:11] VITALS: BP 121/69
--- NOTE | 2018-05-15 07:53 | RAD ---
INDICATION: Wrist pain acquired during yoga COMPARISON: None. TECHNIQUE: 3 views left wrist. REPORT: The visualized bones are properly aligned and well corticated. The joint spaces are normal.There is no fracture, dislocation or other focal osseous abnormality. IMPRESSION: Normal radiograph of the left wrist. If the patient's symptoms persist, follow-up imaging is recommended. R1
== END 2018-05-14 21:10 | disposition home or self-care (01) ==
LOC: ED 17:31
DX: S63.502A Unspecified sprain of left wrist, initial encounter (principal); X58.XXXA Exposure to other specified factors, initial encounter; Y92.9 Unspecified place or not applicable; Z88.3 Allergy status to other anti-infective agents
CPT/HCPCS: 99282